=== PATIENT | male | born 1960 | race Two or more races ===

== ENCOUNTER → 2024-10-05 | Outpatient (CLI) | payer BC, SELFPAY ==
[2024-10-05 11:30] LABS: Basophils % (Auto) 0 % (0-2.5); Eosinophils % (Auto) 0 % (0-10); Hematocrit 42.6 % (41.0-53.0); Hemoglobin 14.7 g/dL (13.5-16.0); Immature Granulocytes % (Auto) 0 % (0-0); Immature Granulocytes Auto 0.03 Thou/mm3 (0.00-0.00); Lymphocytes # (Auto) 0.8 Thou/mm3 (1.0-4.8); Lymphocytes % (Auto) 11 % (10-50); Mean Corpuscular HGB Conc 34.5 g/dl (31.0-37.0); Mean Corpuscular Volume 93 fL (80-100); Monocytes # (Auto) 0.5 Thou/mm3 (0.0-0.8); Monocytes % (Auto) 6 % (0-12); Neutrophils # (Auto) 6.1 Thou/mm3 (1.8-7.7); Neutrophils % (Auto) 82 % (37-80); Nucleated Red Blood Cell % 0 /100 WBC (0); Platelet Count 176 Thou/mm3 (140-440); Red Blood Count 4.59 Miln/mm3 (4.50-5.90); White Blood Count 7.5 Thou/mm3 (3.8-10.6)
[2024-10-05 11:43] LABS: Glucose Estimated Average 154 mg/dL (80-131)
[2024-10-05 11:44] LABS: Creatinine MALB Rnd Ur 80 mg/dL (30-125); Microalbumin Creat Ratio 30 mg/gCrea (<30); Microalbumin, Random Urine 24 mg/L (0-300)
[2024-10-05 11:48] LABS: Prostate Specific Antigen 2.03 ng/mL (0-4.00)
[2024-10-05 11:54] LABS: Alanine Aminotransferase 14 U/L (10-49); Albumin, Serum 4.3 gm/dL (3.4-4.8); Alkaline Phosphatase 52 U/L (46-116); Anion Gap 8 (7-16); Aspartate Amino Transferase 12 U/L (0-34); BUN/Creatinine Ratio 24 Ratio (12-20); Bilirubin,Total 1.1 mg/dL (0.3-1.2); Blood Urea Nitrogen 22 mg/dL (9-23); Calcium 9.1 mg/dL (8.3-10.6); Calcium (Corrected) 9.1 mg/dL (8.5-10.1); Carbon Dioxide 28.2 mMol/L (20.0-31.0); Chloride 103 mMol/L (98-107); Creatinine (Component) 0.9 mg/dL (0.6-1.3); Globulin 2.2 gm/dL (2.3-3.5); Glucose 203 mg/dL (74-106); Osmolality,Calculated 286 (275-295); Potassium 4.2 mMol/L (3.4-5.1); Sodium 139 mMol/L (136-145); Thyroid Stimulating Hormone 1.61 uIU/mL (0.55-4.78); Total Protein 6.5 gm/dL (5.7-8.2); eGFR > 60 See Note
== END | disposition home or self-care (01) ==
LOC: COPL 10:15
DX: R53.83 Other fatigue (principal); E78.49 Other hyperlipidemia; D64.9 Anemia, unspecified; E11.9 Type 2 diabetes mellitus without complications; N40.1 Benign prostatic hyperplasia with lower urinary tract symptoms; E03.8 Other specified hypothyroidism
CPT/HCPCS: 36415; 80053; 82043; 82570; 83036; 84153; 84443; 85025

== ENCOUNTER → 2025-03-13 | Outpatient (CLI) | payer BC, SELFPAY ==
[2025-03-13 11:37] LABS: Creatinine MALB Rnd Ur 67 mg/dL (30-125); Microalbumin Creat Ratio 16 mg/gCrea (<30); Microalbumin, Random Urine 11 mg/L (0-300)
[2025-03-13 11:40] LABS: Basophils # (Auto) 0.0 Thou/mm3 (0.0-0.2); Basophils % (Auto) 1 % (0-2.5); Eosinophils # (Auto) 0.1 Thou/mm3 (0.0-0.5); Eosinophils % (Auto) 3 % (0-10); Hematocrit 41.6 % (41.0-53.0); Hemoglobin 14.4 g/dL (13.5-16.0); Immature Granulocytes Auto 0.01 Thou/mm3 (0.00-0.00); Lymphocytes # (Auto) 1.2 Thou/mm3 (1.0-4.8); Lymphocytes % (Auto) 28 % (10-50); Mean Corpuscular HGB Conc 34.6 g/dl (31.0-37.0); Mean Corpuscular Hemoglobin 31.5 pg (25.0-35.0); Mean Corpuscular Volume 91 fL (80-100); Monocytes # (Auto) 0.4 Thou/mm3 (0.0-0.8); Monocytes % (Auto) 9 % (0-12); Neutrophils # (Auto) 2.6 Thou/mm3 (1.8-7.7); Neutrophils % (Auto) 59 % (37-80); Nucleated Red Blood Cell # 0.00 Thou/mm3 (0.00-0.00); Nucleated Red Blood Cell % 0 /100 WBC (0); Platelet Count 172 Thou/mm3 (140-440); RDW Standard Deviation 39.2 fL (35.1-43.9); Red Blood Count 4.57 Miln/mm3 (4.50-5.90); White Blood Count 4.3 Thou/mm3 (3.8-10.6)
[2025-03-13 11:47] LABS: Prostate Specific Antigen 2.29 ng/mL (0-4.00)
[2025-03-13 11:52] LABS: Vitamin B12 924 pg/mL (211-911); Vitamin D 25 Hydroxy Total 63.0 ng/mL (7.3-40.2)
[2025-03-13 11:57] LABS: Alanine Aminotransferase 9 U/L (10-49); Albumin, Serum 4.4 gm/dL (3.4-4.8); Albumin/Globulin Ratio 2.1 (1.2-2.2); Alkaline Phosphatase 54 U/L (46-116); Anion Gap 8 (7-16); Aspartate Amino Transferase 13 U/L (0-34); BUN/Creatinine Ratio 19 Ratio (12-20); Bilirubin,Total 0.7 mg/dL (0.3-1.2); Blood Urea Nitrogen 17 mg/dL (9-23); Calcium 9.2 mg/dL (8.3-10.6); Calcium (Corrected) 9.2 mg/dL (8.5-10.1); Carbon Dioxide 28.3 mMol/L (20.0-31.0); Cardiac Risk Estimate 3.2 RATIO (4.0-6.7); Chloride 104 mMol/L (98-107); Cholesterol 211 mg/dL (132-200); Creatinine (Component) 0.9 mg/dL (0.6-1.3); Globulin 2.1 gm/dL (2.3-3.5); Glucose 140 mg/dL (74-106); HDL Cholesterol 65 mg/dL (40-60); LDL Cholesterol,Calculated 129 mg/dL (0-130); Osmolality,Calculated 282 (275-295); Potassium 4.3 mMol/L (3.4-5.1); Sodium 140 mMol/L (136-145); Total Protein 6.5 gm/dL (5.7-8.2); Triglycerides 85 mg/dL (30-150); eGFR > 60 See Note
[2025-03-13 12:05] LABS: Glucose Estimated Average 160 mg/dL (80-131); Hemoglobin A1C 7.2 % Hgb (4.8-6.0)
== END | disposition home or self-care (01) ==
PROVIDERS: PCP Internal Medicine Cardiovascular Disease
DX: E53.8 Deficiency of other specified B group vitamins (principal); D64.9 Anemia, unspecified; E11.42 Type 2 diabetes mellitus with diabetic polyneuropathy; E78.5 Hyperlipidemia, unspecified; N40.0 Benign prostatic hyperplasia without lower urinary tract symptoms; R53.83 Other fatigue; E55.9 Vitamin D deficiency, unspecified
CPT/HCPCS: 36415; 80053; 80061; 82043; 82306; 82570; 82607; 83036; 84153; 85025

== ENCOUNTER 2025-03-27 06:44 | Day surgery (SDC) | payer BC, SELFPAY ==
--- NOTE | 2025-03-24 07:00 | EKG_ITS ---
[facility] Test Date: 2025-03-24 Pat Name: MITCHEL LING Department: Room: - Gender: Male Health And Safety Inspector: RODRIGO : 1960 Requested By: Cain Mccann Order Number: [id number] Reading MD: Cain Mccann Measurements Intervals [place] Rate: 57 P: 76 AK: 212 QRS: 68 QRSD: 93 T: 80 QT: 397 QTc: 388 Interpretive Statements SINUS BRADYCARDIA WITH SINUS ARRHYTHMIA WITH FIRST DEGREE AV BLOCK ANTEROSEPTAL MYOCARDIAL INFARCTION , OF INDETERMINATE AGE [40+ ms Q WAVE IN V1-V4] Compared to ECG 03/19/2022 07:52:34 No significant changes /store/S0/[id number].pdf
[2025-03-24 09:05] LABS: Basophils # (Auto) 0.0 Thou/mm3 (0.0-0.2); Basophils % (Auto) 1 % (0-2.5); Eosinophils # (Auto) 0.1 Thou/mm3 (0.0-0.5); Eosinophils % (Auto) 3 % (0-10); Hematocrit 39.7 % (41.0-53.0); Hemoglobin 13.6 g/dL (13.5-16.0); INR 1.3 (0.9-1.3); Immature Granulocytes Auto 0.02 Thou/mm3 (0.00-0.00); Lymphocytes # (Auto) 1.1 Thou/mm3 (1.0-4.8); Lymphocytes % (Auto) 28 % (10-50); Mean Corpuscular HGB Conc 34.3 g/dl (31.0-37.0); Mean Corpuscular Hemoglobin 31.0 pg (25.0-35.0); Mean Corpuscular Volume 90 fL (80-100); Monocytes # (Auto) 0.4 Thou/mm3 (0.0-0.8); Monocytes % (Auto) 9 % (0-12); Neutrophils # (Auto) 2.4 Thou/mm3 (1.8-7.7); Neutrophils % (Auto) 59 % (37-80); Nucleated Red Blood Cell # 0.00 Thou/mm3 (0.00-0.00); Nucleated Red Blood Cell % 0 /100 WBC (0); Partial Thromboplastin Time 28.3 Seconds (22.0-36.0); Platelet Count 164 Thou/mm3 (140-440); Prothrombin Time 13.2 Seconds (9.0-12.2); RDW Standard Deviation 39.3 fL (35.1-43.9); Red Blood Count 4.39 Miln/mm3 (4.50-5.90); White Blood Count 4.1 Thou/mm3 (3.8-10.6)
[2025-03-24 09:06] LABS: Anion Gap 10 (7-16); BUN/Creatinine Ratio 23 Ratio (12-20); Blood Urea Nitrogen 23 mg/dL (9-23); Calcium 9.2 mg/dL (8.3-10.6); Carbon Dioxide 27.1 mMol/L (20.0-31.0); Chloride 103 mMol/L (98-107); Creatinine (Component) 1.0 mg/dL (0.6-1.3); Glucose 133 mg/dL (74-106); Osmolality,Calculated 285 (275-295); Potassium 4.1 mMol/L (3.4-5.1); Sodium 140 mMol/L (136-145); eGFR > 60 See Note
[2025-03-27] VITALS (16 sets, daily range): BP systolic 105–133; BP diastolic 56–74; PULSE 51–66; RESP 14–20; TEMP 36.6–36.8; O2SAT 96–100; BMI 25.9
--- NOTE | 2025-03-27 08:30 | PC.NURSE ---
maria ines, daughter of the patient, requested for discharge instruction to be printed out in Frisian.
[2025-03-27] MEDS: ACETAMINOPHEN 325 MG TABLET 650 MG PO (08:45)
--- NOTE | 2025-03-27 09:54 | ESOP_ITS ---
RE: MITCHEL LING : 1960 DATE OF OPERATION: 03/27/2025 PROCEDURES PERFORMED: 1. Diagnostic left heart cardiac catheterization, selective coronary angiogram, left ventricular angiogram CPT 45750. 2. PCI and PTCA stent placement of the proximal right coronary artery with placement of drug-eluting stent 2.5 x 12 Medtronic [place] drug-eluting stent. Pre-procedure stenosis 90%, post-procedure 0%, JOSE flow pre-procedure is 2, post-procedure 3, CPT 65309. 3. Selective cannulation of radial artery with ultrasound guidance documentation. 4. Conscious sedation 30-minute duration. DIAGNOSES: Coronary artery disease status post stent placement, angina pectoris, abnormal nuclear scan. HISTORY AND INDICATIONS: The patient is a 64-year-old male with a past medical history of hypertension, diabetes, CAD status post multivessel stent placement, recurrent shortness of breath, chest pressure. Cardiac stress test and a nuclear scan showed abnormal results, inferolateral ischemia and apical ischemia. Coronary angiogram was recommended to assess if the patient is a candidate for coronary intervention and revascularization. DESCRIPTION OF PROCEDURE: The patient was brought to cardiac catheterization laboratory where he was given 2 mg Versed, 50 mcg of fentanyl for conscious sedation. Next, a right radial approach was taken. Right radial artery cannulated by ultrasound guidance and micropuncture technique was used and a 6-Armenian Glidesheath was introduced. Next, selective right and left coronary angiogram performed by a TIG 4 diagnostic catheter. Left heart catheterization, left ventricular angiogram performed by a TIG-4 diagnostic catheter. Subsequently, intervention undertaken. Diagnostic procedure showed following findings. HEMODYNAMICS: Left ventricular pressure 110/ 5 mmHg, EDP 6 mmHg, aortic pressure 118/59 mmHg. No gradient across the aortic valve. Left ventricular angiogram showed evidence of normal left ventricular wall motion. Ejection fraction is 60%. Coronary angiogram showed following findings. Right coronary artery large and codominant gives off PDA and RV branches showed evidence of a discrete 90% proximal RCA stenosis. Left coronary system: Left main coronary artery is normal. Left anterior descending artery showed multiple stents in proximal mid segments, all of them are patent with excellent JOSE-3 flow. Circumflex artery large and codominant gives off several OM branches and posterolateral branches, all of them appear normal. Next, following diagnostic procedure, PCI was undertaken. The patient has symptomatic CAD and abnormal nuclear scan, class 1 indication for PCI of the right coronary artery. PCI details are as follows: The patient was given radial cocktail, which has 3000 units. Additional 3000 units heparin given, total of 6000 units and ACT was 320. Proceeded with PCI. Aspirin, Plavix loading dose was given. A 6-Armenian JR2 modified with side hole guiding catheter was used to cannulate the right coronary artery. A 0.014 Runthrough guidewire was used to cross the lesion successfully and a pre-dilation of the lesion performed with a 2 mm Medtronic balloon. Subsequently, a 2.5 x 12 mm Inderjit Medtronic drug-eluting stent deployed successfully, two inflations, maximum 14 atmospheric pressures was performed. Final angiogram showed widely patent right coronary artery with no residual stenosis. SUMMARY: Successful PCI stent placement of the proximal right coronary artery with excellent angiographic results. No complication. Estimated blood loss 0. The patient will be continued on aspirin, Plavix dual-antiplatelet drug therapy for 12 months. COMPLICATIONS: None. DT: 08:27:54 TT: 09:44:00 Ref: [id number] - TID: [id number]
[2025-03-27 10:03] LABS: ACT (CATH LAB ONLY) 321.0 Seconds (89-169)
== END 2025-03-27 12:20 | disposition home or self-care (01) ==
PROVIDERS: PCP Internal Medicine; Referring Provider Internal Medicine Cardiovascular Disease; Visit Provider Internal Medicine Cardiovascular Disease
PROC: (CPT 93458; principal; 2025-03-27 07:30)
DX: I25.118 Atherosclerotic heart disease of native coronary artery with other forms of angina pectoris (principal); I10 Essential (primary) hypertension; E11.9 Type 2 diabetes mellitus without complications; Z01.810 Encounter for preprocedural cardiovascular examination; R94.30 Abnormal result of cardiovascular function study, unspecified; E78.00 Pure hypercholesterolemia, unspecified
CPT/HCPCS: 93458; C9600; 36415; 80048; 85025; 85347; 85610; 85730; 93005; 99152; 99153; A4649; C1725; C1769; C1874; C1887; C1894; J0168; J0461; J1643; J2250; J2312; J2371; J3010; J3490; Q9967; A9270; J2305